=== PATIENT | female | born 1970 | race African-American/Black ===

== ENCOUNTER → 2016-10-22 | Outpatient (CLI) | payer BC ==
[~2016-10-22] MED LIST: IOPAMIDOL (ISOVUE-300) 100 ML BTL IV ONE
== END ==
LOC: FIMAGING 09:10
PROVIDERS: ATTEND Internal Medicine
DX: N32.9 Bladder disorder, unspecified (principal); J98.4 Other disorders of lung; K59.00 Constipation, unspecified
CPT/HCPCS: Q9967

== ENCOUNTER 2016-10-24 01:40 | Emergency (ER) | payer BC ==
[2016-10-24 01:50] VITALS: O2SAT 95
[2016-10-24] MEDS ORDERED: NS 1,000 ML IV ONE (02:22)
[2016-10-24] MEDS ORDERED: fentaNYL 100 MCG/2 ML INJ IVP ONE (02:22)
[2016-10-24 02:39] LABS: % IMMATURE GRANULYOCYTES 0.8 % (0.0-1.1); ABSOLUTE IMMATURE GRANULOCYTES 0.09 10^3/uL (0.00-0.10); ADD DIFF? NO; ADD MORPH? NO; ADD SCAN? NO; ATYPICAL LYMPHOCYTE FLAG 0 (0-99); FRAGMENT RBC FLAG 0 (0-99); HEMATOCRIT 42.8 % (38.0-47.0); HEMOGLOBIN 13.7 g/dL (12.6-16.3); LEFT SHIFT FLG 0 (0-99); LIPEMIA HEMOLYSIS FLAG 80 (0-99); MEAN CELL HEMOGLOBIN 28.5 pg (27.9-34.1); MEAN CELL VOLUME 89.2 fL (81.5-99.8); MEAN PLATELET VOLUME 10.4 fL (8.7-11.7); PLATELET CLUMPS FLAG 0 (0-99); PLATELET COUNT 164 10^3/uL (150-400); RED CELL DISTRIBUTION WIDTH 13.7 % (11.5-15.2)
[2016-10-24 02:56] LABS: ALANINE AMINOTRANSFERASE 26 IU/L (9-52); ALBUMIN 3.9 g/dL (3.5-5.0); ALKALINE PHOSPHATASE 58 IU/L (38-126); ANION GAP 13 mEq/L (8-16); ASPARTATE AMINOTRANSFERASE 22 IU/L (14-46); BILIRUBIN,TOTAL 0.9 mg/dL (0.1-1.4); BILIRUBIN-CONJUGATED 0.4 mg/dL (0.0-0.5); BILIRUBIN-UNCONJUGATED 0.5 mg/dL (0.0-1.1); CALCIUM 9.5 mg/dL (8.5-10.4); CARBON DIOXIDE 22 mEq/l (22-31); CHLORIDE 107 mEq/L (97-110); CREATININE 0.6 mg/dL (0.6-1.0); GLOMERULAR FILTRATION RATE > 60; GLUCOSE 115 mg/dL (70-100); POTASSIUM 4.7 mEq/L (3.5-5.2); SODIUM 142 mEq/L (134-144); TOTAL PROTEIN 7.4 g/dL (6.3-8.2)
[2016-10-24 03:23] LABS: COLOR YELLOW; LEUKOCYTE ESTERASE,URINE TRACE (NEGATIVE); NITRITE,URINE NEGATIVE (NEGATIVE)
[2016-10-24 03:40] LABS: BACTERIA 1+ /hpf (NONE SEEN); MUCUS 1+ /lpf (NONE-1+); RBC,URINE 50-182 /hpf (0-3); WBC,URINE 50-182 /hpf (0-3)
[2016-10-24] MEDS ORDERED: PHENAZOPYRIDINE HCL 200 MG TAB PO ONE (03:40)
--- NOTE | 2016-10-24 03:43 | EDPHY ---
H & P Stated Complaint: abd pain, flank pain Time Seen by Provider: 10/24/16 02:09 HPI/ROS: HPI The patient presents with lower abdominal pain which is suprapubic and awoke her from sleep tonight just prior to arrival. The pain is dull, radiates toward her back bilaterally and is associated with dysuria. She is passing small blood clots when she urinates. She has been diagnosed with a urinary tract infection and has been on 2 antibiotics. Two days ago she was switched to ciprofloxacin, she is not sure of the antibiotic she was on previously. She has been having similar lower abdominal pain. She had a CT scan done 2 days ago which showed thickening of her bladder wall. REVIEW OF SYSTEMS Constitutional: No fever, no chills. Eyes: No discharge. ENT: No sore throat. Cardiovascular: No chest pain, no palpitations. Respiratory: No cough, no shortness of breath. Gastrointestinal: + abdominal pain, no vomiting. Genitourinary: No hematuria. Musculoskeletal: + back pain. Skin: No rashes. Neurological: No headache. PMHx: Interstitial lung disease on CellCept Soc Hx: Lives at home PHYSICAL General Appearance: Alert, no distress Eyes: Pupils equal and round no pallor or injection ENT, Mouth: Mucous membranes moist Respiratory: There are no retractions, lungs are clear to auscultation Cardiovascular: Regular rate and rhythm Gastrointestinal: Abdomen is soft with suprapubic abdominal tenderness Neurological: A&O, moves all extremities Skin: Warm and dry, no rashes Musculoskeletal: Neck is supple non tender Extremities: symmetrical, full range of motion Psychiatric: Patient is oriented X 3, there is no agitation Source: Patient Exam Limitations: No limitations - Medical/Surgical History Hx Asthma: No Hx Chronic Respiratory Disease: No Hx Diabetes: No Hx Cardiac Disease: No Hx Renal Disease: No Hx Cirrhosis: No Hx Alcoholism: No Hx HIV/AIDS: No Hx Splenectomy or Spleen Trauma: No Other PMH: denies Constitutional: Initial Vital Signs Temperature (C) 36.3 C 10/24/16 01:48 Heart Rate 87 10/24/16 01:48 Respiratory Rate 20 10/24/16 01:48 Blood Pressure 90/69 L 10/24/16 01:48 O2 Sat (%) 95 10/24/16 01:48 O2 Delivery Mode Room Air O2 (L/minute) 2 Allergies/Adverse Reactions: No Known Allergies Allergy (Unverified 10/24/16 01:48) Home Medications: Medication Instructions Recorded Phenazopyridine HCl [Pyridium] 200 mg PO TID #20 tab 10/24/16 levOFLOXACIN [Levaquin] 500 mg PO DAILY #7 tablet 10/24/16 Medical Decision Making Differential Diagnosis: This is a 46-year-old female who presents with several days of suprapubic abdominal pain associated with dysuria and hematuria, diagnosed with a urinary tract infection, taking ciprofloxacin, who presents from home with abdominal pain and dysuria which awoke her from sleep. She continues to have hematuria. Hospital records reviewed, CT scan performed 2 days ago shows thickening of her bladder wall with constipation. Urine culture from October 18 shows more than 5 different bacterial colonies, urine culture from 10/22 is negative to date. Differential diagnosis includes hemorrhagic cystitis, pyelonephritis, constipation. In the emergency room, the patient was given IV fluids and pain medication. Her symptoms improved. Labs were checked and she has a mild leukocytosis. UA is similar to previous with small leuk esterase, white blood cells, red blood cells and bacteria. She was given a dose of ceftriaxone. There is some concern for pyelonephritis because she does have back pain with her symptoms. Her urine cultures are not helpful to guide treatment currently, however I will switch her to levofloxacin and have her stop taking ciprofloxacin as there is some concern for pyelonephritis and this may provide better coverage. I have offered her admission, however she would like to go home. She did get a dose of Pyridium here with some improvement in her symptoms will give her prescription for this as well. - Data Points Laboratory Results: Laboratory Results 10/24/16 02:28 10/24/16 02:28 10/24/16 10/24/16 10/24/16 03:07 02:28 02:28 WBC RBC Hgb Hct MCV MCH MCHC RDW Plt Count MPV Neut % (Auto) Lymph % (Auto) Tensas % (Auto) Eos % (Auto) Baso % (Auto) Nucleat RBC Rel Count Absolute Neuts (auto) Absolute Lymphs (auto) Absolute Monos (auto) Absolute Eos (auto) Absolute Basos (auto) Absolute Nucleated RBC Immature Gran % Immature Gran # Sodium 142 mEq/L mEq/L (134-144) Potassium 4.7 mEq/L mEq/L (3.5-5.2) Chloride 107 mEq/L mEq/L (97-110) Carbon Dioxide 22 mEq/l mEq/l (22-31) Anion Gap 13 mEq/L mEq/L (8-16) BUN 15 mg/dL mg/dL (7-23) Creatinine 0.6 mg/dL mg/dL (0.6-1.0) Estimated GFR > 60 Glucose 115 mg/dL H mg/dL (70-100) Calcium 9.5 mg/dL mg/dL (8.5-10.4) Total Bilirubin 0.9 mg/dL mg/dL (0.1-1.4) Conjugated Bilirubin 0.4 mg/dL mg/dL (0.0-0.5) Unconjugated Bilirubin 0.5 mg/dL mg/dL (0.0-1.1) AST 22 IU/L IU/L (14-46) ALT 26 IU/L IU/L (9-52) Alkaline Phosphatase 58 IU/L IU/L (38-126) Total Protein 7.4 g/dL g/dL (6.3-8.2) Albumin 3.9 g/dL g/dL (3.5-5.0) Lipase 279.0 IU/L IU/L (23-300) Beta HCG, Qual NEGATIVE Urine Color YELLOW Urine Appearance MODERATELY TURBID Urine pH 5.0 (5.0-7.5) Ur Specific Gilbert 1.015 (1.002-1.030) Urine Protein 2+ H (NEGATIVE) Urine Ketones NEGATIVE (NEGATIVE) Urine Blood 3+ H (NEGATIVE) Urine Nitrate NEGATIVE (NEGATIVE) Urine Bilirubin NEGATIVE (NEGATIVE) Urine Urobilinogen NEGATIVE EU EU (0.2-1.0) Ur Leukocyte Esterase TRACE H (NEGATIVE) Urine RBC 50-182 /hpf H /hpf (0-3) Urine WBC 50-182 /hpf H /hpf (0-3) Ur Epithelial Cells TRACE /lpf /lpf (NONE-1+) Urine Bacteria 1+ /hpf H /hpf (NONE SEEN) Urine Mucus 1+ /lpf /lpf (NONE-1+) Urine Glucose 1+ H (NEGATIVE) 10/24/16 02:28 WBC 10.80 10^3/uL H 10^3/uL (3.80-9.50) RBC 4.80 10^6/uL 10^6/uL (4.18-5.33) Hgb 13.7 g/dL g/dL (12.6-16.3) Hct 42.8 % % (38.0-47.0) MCV 89.2 fL fL (81.5-99.8) MCH 28.5 pg pg (27.9-34.1) MCHC 32.0 g/dL L g/dL (32.4-36.7) RDW 13.7 % % (11.5-15.2) Plt Count 164 10^3/uL D 10^3/uL (150-400) MPV 10.4 fL fL (8.7-11.7) Neut % (Auto) 70.5 % % (39.3-74.2) Lymph % (Auto) 19.1 % % (15.0-45.0) Tensas % (Auto) 5.4 % % (4.5-13.0) Eos % (Auto) 4.0 % % (0.6-7.6) Baso % (Auto) 0.2 % L % (0.3-1.7) Nucleat RBC Rel Count 0.0 % % (0.0-0.2) Absolute Neuts (auto) 7.62 10^3/uL H 10^3/uL (1.70-6.50) Absolute Lymphs (auto) 2.06 10^3/uL 10^3/uL (1.00-3.00) Absolute Monos (auto) 0.58 10^3/uL 10^3/uL (0.30-0.80) Absolute Eos (auto) 0.43 10^3/uL H 10^3/uL (0.03-0.40) Absolute Basos (auto) 0.02 10^3/uL 10^3/uL (0.02-0.10) Absolute Nucleated RBC 0.00 10^3/uL 10^3/uL (0-0.01) Immature Gran % 0.8 % % (0.0-1.1) Immature Gran # 0.09 10^3/uL 10^3/uL (0.00-0.10) Sodium Potassium Chloride Carbon Dioxide Anion Gap BUN Creatinine Estimated GFR Glucose Calcium Total Bilirubin Conjugated Bilirubin Unconjugated Bilirubin AST ALT Alkaline Phosphatase Total Protein Albumin Lipase Beta HCG, Qual Urine Color Urine Appearance Urine pH Ur Specific Gilbert Urine Protein Urine Ketones Urine Blood Urine Nitrate Urine Bilirubin Urine Urobilinogen Ur Leukocyte Esterase Urine RBC Urine WBC Ur Epithelial Cells Urine Bacteria Urine Mucus Urine Glucose Medications Given: Discontinued Medications Fentanyl (Sublimaze) 100 mcg IVP EDNOW ONE Stop: 10/24/16 02:23 Last Admin: 10/24/16 02:45 Dose: 100 mcg Sodium Chloride (Ns) 1,000 mls @ 0 mls/hr IV ONCE ONE PRN Reason: Wide Open Stop: 10/24/16 02:23 Last Admin: 10/24/16 02:45 Dose: 1,000 mls Ceftriaxone Sodium/Dextrose (Rocephin 1 Gm (Premix)) 50 mls @ 100 mls/hr IV EDNOW ONE PRN Reason: Protocol Stop: 10/24/16 04:02 Last Admin: 10/24/16 03:50 Dose: 50 mls Phenazopyridine HCl (Pyridium) 200 mg PO EDNOW ONE Stop: 10/24/16 03:41 Last Admin: 10/24/16 03:50 Dose: 200 mg Departure - Departure Disposition: Home, Routine, Self-Care Clinical Impression: Hemorrhagic cystitis Condition: Good Instructions: Urinary Tract Infection in Women (ED) Additional Instructions: Please return to the emergency room if your worse in any way. You should stop taking the ciprofloxacin and start taking the antibiotic I have prescribed. Referrals: Marlee Talavera MD [Primary Care Provider] - As per Instructions Prescriptions: levOFLOXACIN [Levaquin] 500 mg PO DAILY #7 tablet Phenazopyridine HCl [Pyridium] 200 mg PO TID #20 tab
[2016-10-24 06:07] VITALS: BP 97/64; PULSE 73; RESP 16; TEMP 98.4
== END 2016-10-24 06:07 | disposition home or self-care (01) ==
DX: N30.90 Cystitis, unspecified without hematuria (principal)
CPT/HCPCS: 96365; J0696; J3010

== ENCOUNTER 2016-10-28 14:59 | Emergency (ER) | payer BC ==
--- NOTE | 2016-10-28 15:06 | EDPHY ---
H & P Stated Complaint: Lower back pain, hematuria, LLQ abd pain recent uti HPI/ROS: CHIEF COMPLAINT: Abdominal pain HISTORY OF PRESENT ILLNESS: The patient is a 46 year old female on CellCept for interstitial lung disease who presents to the emergency department with worsening abdominal pain. The patient started having intermittent lower abdominal pain 5 days ago. She was diagnosed with a urinary tract infection by her primary care physician and started on 2 different antibiotics. She was seen here on 10/24 for continued lower abdominal pain with associated hematuria. At that time, UA showed ongoing infection. She discontinued Ciprofloxacin and was started on Levofloxacin which she is still taking. The patient had a CT performed 10/22 that revealed thickened bladder wall with constipation. She used an enema but has only been able to have small bowel movements. Her abdominal pain has progressively worsened. This morning the pain came on gradually and has remained constant. It is severe in nature. She has been taking 600mg Ibuprofen with minimal relief. She continues to have hematuria. She developed chills and had 1 episode of emesis today. She has been eating throughout the day without further vomiting. REVIEW OF SYSTEMS: A ten point review of systems was performed and is negative with the exception of the items mentioned in the HPI. Source: Patient, Family Exam Limitations: No limitations - Personal History LMP (Females 10-55): Unknown Current Tetanus/Diphtheria Vaccine: Unsure Current Tetanus Diphtheria and Acellular Pertussis (TDAP): Unsure - Medical/Surgical History Hx Asthma: No Hx Chronic Respiratory Disease: Yes Hx Diabetes: No Hx Cardiac Disease: No Hx Renal Disease: No Hx Cirrhosis: No Hx Alcoholism: No Hx HIV/AIDS: No Hx Splenectomy or Spleen Trauma: No Other PMH: being treated by dr robles ([place]) for interstitial lung disease - Social History Smoking Status: Never smoked Additional Social History: at bedside. Employed at [employer]. - Physical Exam Exam: General Appearance: Alert, appears uncomfortable. Vital signs reviewed. HR 104 at triage. Eyes: Pupils equal and round, no conjunctival injection, no discharge. Anicteric. ENT, Mouth: Dry oral mucosa, no oropharyngeal erythema or edema. Neck: No lymphadenopathy, supple. Respiratory: Lungs are clear to auscultation; slight crackles bilaterally. Cardiovascular: Regular rate and rhythm, not tachycardic at time of my exam; no murmur, rub, or gallop. Gastrointestinal: Soft, moderate diffuse tenderness, worse left lower quadrant. No guarding. Bowel sounds present. Rectal: performed earlier today by PCP, no palpable stool in rectal vault Skin: Warm and dry, no rashes on exposed skin, normal color. Back: Nontender to palpation over the thoracolumbar spine. No CVAT. Extremities: No lower extremity edema, no calf tenderness or swelling. Neurological: Alert and oriented. Moving all four extremities easily and equally. Psychiatric: Normal affect. Constitutional: Initial Vital Signs Temperature (C) 36.5 C 10/28/16 15:01 Heart Rate 104 H 10/28/16 15:01 Respiratory Rate 20 10/28/16 15:01 Blood Pressure 116/74 10/28/16 15:01 O2 Sat (%) 95 10/28/16 15:01 O2 Delivery Mode Room Air O2 (L/minute) 2 Allergies/Adverse Reactions: No Known Allergies Allergy (Verified 10/29/16 11:38) Home Medications: Medication Instructions Recorded Phenazopyridine HCl [Pyridium] 200 mg PO TID #20 tab 10/24/16 levOFLOXACIN [Levaquin] 500 mg PO DAILY #7 tablet 10/24/16 Ibuprofen [Motrin (*)] 600 mg PO TID 10/29/16 Mycophenolate Mofetil [Cellcept] 1,500 mg PO BID 10/29/16 Solifenacin Succinate [Vesicare] 10 mg PO DAILY 10/29/16 Medical Decision Making - Diagnostics Imaging: Study: X-ray of the abdomen was obtained. Results: Massive right-sided constipation worse since 6 days prior. 2. No discernible pneumoperitoneum. Images were interpreted by the radiologist, Dr. Acosta. I viewed the images myself on the PACS system. ED Course/Re-evaluation: Lab work and repeat UA ordered. Abdominal x-ray pending. IV was established, the patient received fluids, 0.5mg Dilaudid, 4mg Zofran. Xray shows significant constipation, no obstruction. She is not vomiting and has been eating in the emergency department. 6:45 p.m.: I reevaluated the patient after she received a suppository as well as Magnesium citrate PO. She has still not had a bowel movement. She received a second suppository in the ED. 7:25 p.m.: The patient is comfortable with trying to have a bowel movement at home. We discussed continued treatment of constipation. I discussed UA results with the patient. Urine with continued signs of infection--WBC, RBC, nitrate, and LE with trace of bacteria. Culture sent. She is going to complete the course of levaquin. She will followup with a urologist. I do not suspect pyelonephritis today. I think that her lower abdominal pain is due to severe constipation. I do not find evidence of SBO. I do not think that she has diverticulitis (nl WBC count, no fever, no diarrhea or blood in stool). Differential Diagnosis: Abdominal pain including but not limited to bowel obstruction, diverticulitis, appendicitis, gastritis, pyelonephritis, and urinary tract infection. - Data Points Laboratory Results: Laboratory Results 10/28/16 15:34 10/28/16 15:34 Microbiology Results: MICROBIOLOGY 10/28/16 17:25 Urine,Clean Catch Urine Culture - Preliminary Medications Given: Discontinued Medications Bisacodyl (Dulcolax Rectal) 10 mg VT EDNOW ONE Stop: 10/28/16 18:28 Last Admin: 10/28/16 18:37 Dose: 10 mg Hydromorphone HCl (Dilaudid) 0.5 mg IVP EDNOW ONE Stop: 10/28/16 15:31 Last Admin: 10/28/16 15:48 Dose: 0.5 mg Sodium Chloride (Ns) 1,000 mls @ 0 mls/hr IV ONCE ONE PRN Reason: Wide Open Stop: 10/28/16 15:31 Last Admin: 10/28/16 15:48 Dose: 1,000 mls Magnesium Citrate (Magnesium Citrate) 100 ml PO ONCE ONE Stop: 10/28/16 16:28 Last Admin: 10/28/16 16:52 Dose: 300 ml Ondansetron HCl (Zofran) 4 mg IVP EDNOW ONE Stop: 10/28/16 15:31 Last Admin: 10/28/16 15:48 Dose: 4 mg Departure - Departure Disposition: Home, Routine, Self-Care Clinical Impression: Constipation Qualifiers: Constipation type: unspecified constipation type Qualified Code(s): K59.00 - Constipation, unspecified Urinary tract infection Qualifiers: Urinary tract infection type: acute cystitis Hematuria presence: with hematuria Qualified Code(s): N30.01 - Acute cystitis with hematuria Condition: Good Instructions: Constipation (ED), Urinary Tract Infection in Women (ED) Additional Instructions: Eat bland food that are easy to digest. Avoid dairy for the next 48 hours. Drink plenty of fluids. Try using Magnesium citrate and Glycerine suppository you can buy this at any pharmacy. If you continue to have trouble with your bowels followup with your primary care physician or return to the Emergency Department. If symptoms reoccur, followup with the multiple effect evaporator operator that you have been referred to. Call the referred Urologist to discuss ongoing urinary tract infection. Referrals: Marlee Talavera MD [Primary Care Provider] - As per Instructions Betty Vizcaino MD [Medical Doctor] - As per Instructions Ray España MD [Medical Doctor] - As per Instructions (Urologist) Report Scribed for: Anaya Gaming Report Scribed by: Elicia Booker Date of Report: 10/28/16 Time of Report: 15:24 Physician Review and Approval Statement: 10/28/16 15:06 Portions of this note were transcribed by the medical supply technician. I, Dr. Anaya Gaming, personally performed the history, physical exam, and medical decision- making; and confirmed the accuracy of the information in the transcribed note.
[2016-10-28] MEDS ORDERED: NS 1,000 ML IV ONE (15:30)
[2016-10-28] MEDS ORDERED: ONDANSETRON 4 MG/2 ML VIAL IVP ONE (15:30)
[2016-10-28] MEDS ORDERED: HYDROmorphONE/DILAUDID 1 MG/ML SYR IVP ONE (15:30)
[2016-10-28 15:43] LABS: % IMMATURE GRANULYOCYTES 0.5 % (0.0-1.1); ABSOLUTE IMMATURE GRANULOCYTES 0.04 10^3/uL (0.00-0.10); ADD DIFF? NO; ADD MORPH? NO; ADD SCAN? NO; ATYPICAL LYMPHOCYTE FLAG 0 (0-99); FRAGMENT RBC FLAG 0 (0-99); HEMATOCRIT 45.6 % (38.0-47.0); LEFT SHIFT FLG 0 (0-99); LIPEMIA HEMOLYSIS FLAG 80 (0-99); MEAN CELL HEMOGLOBIN 27.7 pg (27.9-34.1); MEAN CELL HEMOGLOBIN CONCENTR. 32.9 g/dL (32.4-36.7); MEAN CELL VOLUME 84.1 fL (81.5-99.8); PLATELET CLUMPS FLAG 10 (0-99); PLATELET COUNT 208 10^3/uL (150-400); RED BLOOD CELL COUNT 5.42 10^6/uL (4.18-5.33); RED CELL DISTRIBUTION WIDTH 13.8 % (11.5-15.2)
[2016-10-28 16:13] LABS: ANION GAP 14 mEq/L (8-16); CALCIUM 10.3 mg/dL (8.5-10.4); CARBON DIOXIDE 23 mEq/l (22-31); CHLORIDE 105 mEq/L (97-110); CREATININE 0.8 mg/dL (0.6-1.0); GLOMERULAR FILTRATION RATE > 60; GLUCOSE 82 mg/dL (70-100); POTASSIUM 4.3 mEq/L (3.5-5.2); SODIUM 142 mEq/L (134-144)
[2016-10-28] MEDS ORDERED: MAGNESIUM CITRATE 300 ML BOTTLE PO ONE (16:27)
[2016-10-28 17:19] LABS: COLOR AMBER; LEUKOCYTE ESTERASE,URINE 1+ (NEGATIVE); NITRITE,URINE POSITIVE (NEGATIVE)
[2016-10-28 17:24] LABS: BACTERIA TRACE /hpf (NONE SEEN); MUCUS TRACE /lpf (NONE-1+); RBC,URINE 50-182 /hpf (0-3); WBC,URINE 50-182 /hpf (0-3)
[2016-10-28] MEDS ORDERED: BISACODYL 10 MG SUPP PR ONE ×2 (18:27→18:28)
[2016-10-28 18:51] VITALS: RESP 18
[2016-10-28 19:47] VITALS: BP 111/74; PULSE 96; TEMP 98.1; O2SAT 92
== END 2016-10-28 19:47 | disposition home or self-care (01) ==
DX: K59.00 Constipation, unspecified (principal); N30.01 Acute cystitis with hematuria; B96.89 Other specified bacterial agents as the cause of diseases classified elsewhere
CPT/HCPCS: 96374; J1170; J2405

== ENCOUNTER 2016-10-29 08:22 | Observation (INO) | payer BC ==
[2016-10-29] MEDS ORDERED: NS 1,000 ML IV ONE (08:45)
[2016-10-29] MEDS ORDERED: fentaNYL 100 MCG/2 ML INJ IVP ONE (08:48)
[2016-10-29] MEDS ORDERED: fentaNYL 100 MCG/2 ML INJ ONE (08:49)
--- NOTE | 2016-10-29 09:15 | EDPHY ---
H & P Stated Complaint: LOW BACK PAIN VOMITING CONSTIPATION SEEN YESTERDAY FOR SAME HPI/ROS: CHIEF COMPLAINT: abdominal pain, constipation vomiting HISTORY OF PRESENT ILLNESS: patient has greater than 2 week history of abdominal pain. At 1st this was generalized and associated with constipation and urinary symptoms. This is her 3rd visit for the same complaints. Initially she had a CT scan by her outpatient primary care physician as noted in the chart. She then repeat was seen in the emergency department on diagnosed with UTI. She initially was on ciprofloxacin, on the she was changed to Levaquin. She was here yesterday with worsening abdominal pain and diagnosed with constipation. She was treated for this and discharged home with instructions to continue laxatives at home. She says that she was unable to do so as her pain significantly worsened last night. The pain is primarily over the left flank now. It is rated as severe. 10/10 without any alleviating factors. No position of comfort. Associated with multiple episodes of vomiting , including 1 upon arrival to the emergency department. Subjective fever. No other associated complaints or modifying factors PREVIOUS ABDOMINAL SURGERIES/DIAGNOSES: UTI, constipation, interstitial cystitis REVIEW OF SYSTEMS: Ten systems reviewed and are negative unless otherwise noted in the HPI EXAMINATION: General Appearance: Alert, no distress. In obvious discomfort Head: normocephalic, atraumatic Eyes: Pupils equal and round, no conjunctival pallor or injection ENT, Mouth: Mucous membranes dry. Uvula midline. No erythema or edema Neck: Normal inspection, supple, non-tender Respiratory: Lungs are clear to auscultation. No wheezing, rhonchi or crackles. Cardiovascular: Regular rate and rhythm . No murmur. Pulses intact distally. Gastrointestinal: Abdomen is Soft but tender in all quadrants. Severe tenderness over the left CVA. Mild tenderness over the right CVA. No tympany. Diminished bowel sounds in all quadrants Neurological: A&O, nonfocal, strength is symmetric in all limbs Skin: Warm and dry, no rash Extremities: Nontender, no pedal edema Psychiatric: Mood and affect normal DIFFERENTIAL DIAGNOSES: Including but not limited to Pyelonephritis, constipation, obstipation, UTI MDM: 9:15 a.m. ongoing abdominal pain that has acutely worsened yesterday. It is now severe in the left flank and moderate in the right flank, and generalized abdominal pain that is moderate to severe. No bowel movement since discharged home yesterday. She has been vomiting repeatedly and her pain is significantly worse. She does appear ill on my examination, but she is hemodynamically stable. I have ordered ultrasound of the kidneys to examine for pyelonephritis versus stone. Clinical suspicion is high for pyelonephritis with severe constipation. Patient will likely need admission as this is her 3rd visit for this. 9:35 a.m. notified by RN that the patient is complaining of worsening pain during her ultrasound. Dilaudid 0.5 ordered 11:00 a.m. intractable abdominal pain in a patient with 3 emergency department visits for constipation and urinary complaints. UA has improved since previous. Chemistry reveals some mild elevation of the bilirubin, but her pain is not in the right upper quadrant. Ultrasound of the kidneys reveals no abnormality. Specifically no hydronephrosis, stranding or stone. CBC has improved. However the patient feels worse, and on examination she does not appear to be well. I discussed the case with the hospitalists and they will admit the patient for further care. The patient and her spouse are comfortable with this plan. ED Precautions: Worsening pain. Fever. Bloody stools. Bloody emesis. Constipation or diarrhea. SUPERVISION: Patient was evaluated in conjunction with the supervising physician. Please see their note for details. Source: Patient, Family, Old records Exam Limitations: No limitations - Personal History Current Tetanus/Diphtheria Vaccine: Yes Current Tetanus Diphtheria and Acellular Pertussis (TDAP): Yes - Medical/Surgical History Hx Asthma: No Hx Chronic Respiratory Disease: Yes Hx Diabetes: No Hx Cardiac Disease: No Hx Renal Disease: No Hx Cirrhosis: No Hx Alcoholism: No Hx HIV/AIDS: No Hx Splenectomy or Spleen Trauma: No Other PMH: being treated by dr robles ([place]) for interstitial lung disease - Social History Smoking Status: Never smoked Constitutional: Initial Vital Signs Temperature (C) 98.2 F 10/29/16 08:24 Heart Rate 105 H 10/29/16 08:24 Respiratory Rate 20 10/29/16 08:24 Blood Pressure 110/97 H 10/29/16 08:24 O2 Sat (%) 96 10/29/16 08:24 O2 Delivery Mode Room Air Allergies/Adverse Reactions: No Known Allergies Allergy (Unverified 10/29/16 08:26) Home Medications: Medication Instructions Recorded Phenazopyridine HCl [Pyridium] 200 mg PO TID #20 tab 10/24/16 levOFLOXACIN [Levaquin] 500 mg PO DAILY #7 tablet 10/24/16 Mycophenolate Mofetil 10/29/16 Vesicare 10/29/16 Medical Decision Making - Data Points Laboratory Results: Laboratory Results 10/29/16 08:45 10/29/16 08:45 10/29/16 10/29/16 10/29/16 09:55 08:45 08:45 WBC RBC Hgb Hct MCV MCH MCHC RDW Plt Count MPV Neut % (Auto) Lymph % (Auto) [place] % (Auto) Eos % (Auto) Baso % (Auto) Nucleat RBC Rel Count Absolute Neuts (auto) Absolute Lymphs (auto) Absolute Monos (auto) Absolute Eos (auto) Absolute Basos (auto) Absolute Nucleated RBC Immature Gran % Immature Gran # Sodium 139 mEq/L mEq/L (134-144) Potassium 4.3 mEq/L mEq/L (3.5-5.2) Chloride 103 mEq/L mEq/L (97-110) Carbon Dioxide 22 mEq/l mEq/l (22-31) Anion Gap 14 mEq/L mEq/L (8-16) BUN 11 mg/dL mg/dL (7-23) Creatinine 0.8 mg/dL mg/dL (0.6-1.0) Estimated GFR > 60 Glucose 89 mg/dL mg/dL (70-100) Calcium 9.3 mg/dL mg/dL (8.5-10.4) Total Bilirubin 2.4 mg/dL H mg/dL (0.1-1.4) Conjugated Bilirubin 0.5 mg/dL mg/dL (0.0-0.5) Unconjugated Bilirubin 1.9 mg/dL H mg/dL (0.0-1.1) AST 38 IU/L IU/L (14-46) ALT 29 IU/L IU/L (9-52) Alkaline Phosphatase 81 IU/L IU/L (38-126) Total Protein 7.9 g/dL g/dL (6.3-8.2) Albumin 4.2 g/dL g/dL (3.5-5.0) Lipase 114.0 IU/L IU/L (23-300) Beta HCG, Qual NEGATIVE Urine Color ROMAIN Urine Appearance MODERATELY TURBID Urine pH 5.0 (5.0-7.5) Ur Specific [place] 1.011 (1.002-1.030) Urine Protein 2+ H (NEGATIVE) Urine Ketones 1+ H (NEGATIVE) Urine Blood 3+ H (NEGATIVE) Urine Nitrate POSITIVE H (NEGATIVE) Urine Bilirubin NEGATIVE (NEGATIVE) Urine Urobilinogen 2.0 EU H EU (0.2-1.0) Ur Leukocyte Esterase 1+ H (NEGATIVE) Urine RBC 50-182 /hpf H /hpf (0-3) Urine WBC 50-182 /hpf H /hpf (0-3) Ur Epithelial Cells NONE SEEN /lpf /lpf (NONE-1+) Urine Bacteria 2+ /hpf H /hpf (NONE SEEN) Urine Mucus 3+ /lpf H /lpf (NONE-1+) Ur Culture Indicated? INDICATED H (NI) Urine Glucose NEGATIVE (NEGATIVE) 10/29/16 08:45 WBC 8.02 10^3/uL 10^3/uL (3.80-9.50) RBC 5.00 10^6/uL 10^6/uL (4.18-5.33) Hgb 14.2 g/dL g/dL (12.6-16.3) Hct 43.5 % % (38.0-47.0) MCV 87.0 fL fL (81.5-99.8) MCH 28.4 pg pg (27.9-34.1) MCHC 32.6 g/dL g/dL (32.4-36.7) RDW 13.7 % % (11.5-15.2) Plt Count 196 10^3/uL 10^3/uL (150-400) MPV 10.2 fL fL (8.7-11.7) Neut % (Auto) 74.6 % H % (39.3-74.2) Lymph % (Auto) 13.7 % L % (15.0-45.0) [place] % (Auto) 7.1 % % (4.5-13.0) Eos % (Auto) 3.9 % % (0.6-7.6) Baso % (Auto) 0.1 % L % (0.3-1.7) Nucleat RBC Rel Count 0.0 % % (0.0-0.2) Absolute Neuts (auto) 5.98 10^3/uL 10^3/uL (1.70-6.50) Absolute Lymphs (auto) 1.10 10^3/uL 10^3/uL (1.00-3.00) Absolute Monos (auto) 0.57 10^3/uL 10^3/uL (0.30-0.80) Absolute Eos (auto) 0.31 10^3/uL 10^3/uL (0.03-0.40) Absolute Basos (auto) 0.01 10^3/uL L 10^3/uL (0.02-0.10) Absolute Nucleated RBC 0.00 10^3/uL 10^3/uL (0-0.01) Immature Gran % 0.6 % % (0.0-1.1) Immature Gran # 0.05 10^3/uL 10^3/uL (0.00-0.10) Sodium Potassium Chloride Carbon Dioxide Anion Gap BUN Creatinine Estimated GFR Glucose Calcium Total Bilirubin Conjugated Bilirubin Unconjugated Bilirubin AST ALT Alkaline Phosphatase Total Protein Albumin Lipase Beta HCG, Qual Urine Color Urine Appearance Urine pH Ur Specific [place] Urine Protein Urine Ketones Urine Blood Urine Nitrate Urine Bilirubin Urine Urobilinogen Ur Leukocyte Esterase Urine RBC Urine WBC Ur Epithelial Cells Urine Bacteria Urine Mucus Ur Culture Indicated? Urine Glucose Medications Given: Discontinued Medications Fentanyl (Sublimaze) 50 mcg IVP EDNOW ONE Stop: 10/29/16 08:49 Last Admin: 10/29/16 08:55 Dose: 50 mcg Hydromorphone HCl (Dilaudid) 0.5 mg IVP Q2HRS PRN PRN Reason: Pain, Severe Unable to Take PO Stop: 10/29/16 10:01 Last Admin: 10/29/16 09:46 Dose: 0.5 mg Sodium Chloride (Ns) 1,000 mls @ 0 mls/hr IV ONCE ONE PRN Reason: Wide Open Stop: 10/29/16 08:46 Last Admin: 10/29/16 08:55 Dose: 1,000 mls Departure - Departure Disposition: [facility] Inpatient Acute Clinical Impression: Intractable abdominal pain, Acute flank pain UTI (urinary tract infection) Qualifiers: Urinary tract infection type: site unspecified Hematuria presence: with hematuria Qualified Code(s): N39.0 - Urinary tract infection, site not specified Condition: Good Referrals: Marlee Talavera MD [Primary Care Provider] - As per Instructions
[2016-10-29 09:18] LABS: % IMMATURE GRANULYOCYTES 0.6 % (0.0-1.1); ABSOLUTE IMMATURE GRANULOCYTES 0.05 10^3/uL (0.00-0.10); ADD DIFF? NO; ADD MORPH? NO; ADD SCAN? NO; ATYPICAL LYMPHOCYTE FLAG 0 (0-99); FRAGMENT RBC FLAG 0 (0-99); HEMATOCRIT 43.5 % (38.0-47.0); HEMOGLOBIN 14.2 g/dL (12.6-16.3); LEFT SHIFT FLG 0 (0-99); LIPEMIA HEMOLYSIS FLAG 80 (0-99); MEAN CELL HEMOGLOBIN 28.4 pg (27.9-34.1); MEAN CELL HEMOGLOBIN CONCENTR. 32.6 g/dL (32.4-36.7); MEAN PLATELET VOLUME 10.2 fL (8.7-11.7); PLATELET CLUMPS FLAG 10 (0-99); PLATELET COUNT 196 10^3/uL (150-400); RED CELL DISTRIBUTION WIDTH 13.7 % (11.5-15.2)
[2016-10-29 09:27] LABS: ALANINE AMINOTRANSFERASE 29 IU/L (9-52); ALBUMIN 4.2 g/dL (3.5-5.0); ALKALINE PHOSPHATASE 81 IU/L (38-126); ANION GAP 14 mEq/L (8-16); ASPARTATE AMINOTRANSFERASE 38 IU/L (14-46); BILIRUBIN,TOTAL 2.4 mg/dL (0.1-1.4); BILIRUBIN-CONJUGATED 0.5 mg/dL (0.0-0.5); BILIRUBIN-UNCONJUGATED 1.9 mg/dL (0.0-1.1); CALCIUM 9.3 mg/dL (8.5-10.4); CARBON DIOXIDE 22 mEq/l (22-31); CHLORIDE 103 mEq/L (97-110); CREATININE 0.8 mg/dL (0.6-1.0); GLOMERULAR FILTRATION RATE > 60; GLUCOSE 89 mg/dL (70-100); POTASSIUM 4.3 mEq/L (3.5-5.2); SODIUM 139 mEq/L (134-144); TOTAL PROTEIN 7.9 g/dL (6.3-8.2)
[2016-10-29] MEDS: HYDROmorphONE/DILAUDID 1 MG/ML SYR IVP PRN ×2 (09:46→12:04)
[2016-10-29 10:29] LABS: COLOR AMBER; LEUKOCYTE ESTERASE,URINE 1+ (NEGATIVE); NITRITE,URINE POSITIVE (NEGATIVE)
[2016-10-29 10:31] LABS: BACTERIA 2+ /hpf (NONE SEEN); MUCUS 3+ /lpf (NONE-1+); RBC,URINE 50-182 /hpf (0-3); WBC,URINE 50-182 /hpf (0-3)
[2016-10-29] MEDS ORDERED: HYDROmorphONE/DILAUDID 1 MG/ML SYR ONE (11:54)
[2016-10-29] MEDS ORDERED: ONDANSETRON 4 MG/2 ML VIAL IVP PRN (13:45)
[2016-10-29] MEDS ORDERED: HYDROCODONE/APAP 5/325 TAB PO PRN (13:45)
[2016-10-29] MEDS ORDERED: ONDANSETRON DISINTEGRATING 4 MG TAB PO PRN (13:45)
--- NOTE | 2016-10-29 13:52 | PDGENHP ---
History and Physical - Chief Complaint abd pain - History of Present Illness 46 yo Female p/w worsening abd pain. She has had multiple visits to the E.D. in the last 2 weeks. Yesterday she presented to the E.D. with abd pain and a KUB showed Right sided constipation. She was given a bowel regimen and had a very small minimal stool this morning. She continue to have right sided abdominal pain and presented to the E.D. Abd US today showed no hydronephrosis, no perinephric fluid, no stone. She denies flank pain. she was admitted for further mgmt. She reports that abd pain started about 2 weeks ago and has been getting worse. She does not remember when her last BM was. Most of the pain is localized to the right quadrant. She has remained afebrile. She reports not recent flatus, but did have flatus and small BM this morning. She also c/o Dysuria. She was evaluated in the E.D multiple times as well. Was treated for a UTI about 1.5 weeks. Abx were recently changed to Levaquin which she has been taking for several days with no relief of her sx's. UA today is c/ w +WBC, +Nitrate, +LE. PMHx: -Interstitial lung disease, UTI, constipation PSurgical Hx: the pt denies SocHx: no tobacco, ETOH, or Illicits FmHx: Diabetes Meds/All: NKDA. Meds reviewed. Include Levaquin, Ibuprofen, Cellcept, Pyridium, Vesicare Labs: CBC unremarkable BMP unremarkable Imaging: Abd US: per above KUB 10/28: constipation, personally reviewed 10/22: Abd/Pelvis CT: Moderate diffuse bladder thickening 10/25: UCx: no growth I/P #CONSTIPATION #ABD PAIN DUE TO CONSTIPATION, mostly with localization to the RLQ #QUERY INTERSTITIAL CYSTITIS #POSSIBLE UTI #ILD PLANS: The pt has not had a significant BM in quite some time. She will be initially treated with an Enema. If she does not respond, will obtain imaging to include a CT abd/pelvis. She will be started on Miralax and stool softners after the Enema is successful. She will be kept NPO for now. She does have RLQ pain, but does not have leukocytosis or fever. She does have a recent XR which shows constipation. I doubt that there is another etiology including acute appendicitis. For now treat per above. As for her dysuria, she was given the information for Dr. Asher with Urology during her last visit with the [facility]. It is not clear what the etiology is. Given persistent dysuria and UA per above, I will empirically change her abx to Rocephin and await cultures. We will hold off on Urology consult and opt for outpatient f/u if the constipation resolved and her pain is well controlled. Await cultures. Restart home meds DVT proph: Low risk Code: Full code History Information - Allergies/Home Medication List Allergies/Adverse Reactions: No Known Allergies Allergy (Verified 10/29/16 11:38) Home Medications: Ibuprofen [Motrin (*)] 600 mg PO TID 10/29/16 [Last Taken 10/28/16] Mycophenolate Mofetil [Cellcept] 1,500 mg PO BID 10/29/16 [Last Taken 10/29/16 1500MG] Solifenacin Succinate [Vesicare] 10 mg PO DAILY 10/29/16 [Last Taken 10/28/16] I have personally reviewed and updated: family history, medical history, social history, surgical history - Social History Smoking Status: Never smoked Review of Systems ROS: 10pt was reviewed & negative except for what was stated in HPI & below Physical Exam Temp Pulse Resp BP Pulse Ox 36.6 C 86 18 107/72 100 10/29/16 12:53 10/29/16 12:34 10/29/16 12:53 10/29/16 12:53 10/29/16 12:53 Constitutional: no apparent distress, appears nourished, not in pain Eyes: PERRL, anicteric sclera, EOMI Ears, Nose, Mouth, Throat: moist mucous membranes, hearing normal, ears appear normal, no oral mucosal ulcers Cardiovascular: regular rate and rhythym, no murmur, rub, or gallop, No edema Respiratory: no respiratory distress, no rales or rhonchi, clear to auscultation Gastrointestinal: tenderness, distension Genitourinary: no renal bruits Skin: warm, normal color, no rashes or abrasions, no fluctuance, no induration, No mottled Neurologic: AAOx3, sensation intact bilaterally Psychiatric: interacting appropriately, not anxious, not encephalopathic, thought process linear Lymph, Heme, Immunologic: no cervical LAD, no supraclavicular LAD Lab Data & Imaging Review 10/29/16 08:45 10/29/16 08:45 WBC 8.02 10^3/uL (3.80-9.50) 10/29/16 08:45 RBC 5.00 10^6/uL (4.18-5.33) 10/29/16 08:45 Hgb 14.2 g/dL (12.6-16.3) 10/29/16 08:45 Hct 43.5 % (38.0-47.0) 10/29/16 08:45 MCV 87.0 fL (81.5-99.8) 10/29/16 08:45 MCH 28.4 pg (27.9-34.1) 10/29/16 08:45 MCHC 32.6 g/dL (32.4-36.7) 10/29/16 08:45 RDW 13.7 % (11.5-15.2) 10/29/16 08:45 Plt Count 196 10^3/uL (150-400) 10/29/16 08:45 MPV 10.2 fL (8.7-11.7) 10/29/16 08:45 Neut % (Auto) 74.6 % (39.3-74.2) H 10/29/16 08:45 Lymph % (Auto) 13.7 % (15.0-45.0) L 10/29/16 08:45 [place] % (Auto) 7.1 % (4.5-13.0) 10/29/16 08:45 Eos % (Auto) 3.9 % (0.6-7.6) 10/29/16 08:45 Baso % (Auto) 0.1 % (0.3-1.7) L 10/29/16 08:45 Nucleat RBC Rel Count 0.0 % (0.0-0.2) 10/29/16 08:45 Absolute Neuts (auto) 5.98 10^3/uL (1.70-6.50) 10/29/16 08:45 Absolute Lymphs (auto) 1.10 10^3/uL (1.00-3.00) 10/29/16 08:45 Absolute Monos (auto) 0.57 10^3/uL (0.30-0.80) 10/29/16 08:45 Absolute Eos (auto) 0.31 10^3/uL (0.03-0.40) 10/29/16 08:45 Absolute Basos (auto) 0.01 10^3/uL (0.02-0.10) L 10/29/16 08:45 Absolute Nucleated RBC 0.00 10^3/uL (0-0.01) 10/29/16 08:45 Immature Gran % 0.6 % (0.0-1.1) 10/29/16 08:45 Immature Gran # 0.05 10^3/uL (0.00-0.10) 10/29/16 08:45 Sodium 139 mEq/L (134-144) 10/29/16 08:45 Potassium 4.3 mEq/L (3.5-5.2) 10/29/16 08:45 Chloride 103 mEq/L (97-110) 10/29/16 08:45 Carbon Dioxide 22 mEq/l (22-31) 10/29/16 08:45 Anion Gap 14 mEq/L (8-16) 10/29/16 08:45 BUN 11 mg/dL (7-23) 10/29/16 08:45 Creatinine 0.8 mg/dL (0.6-1.0) 10/29/16 08:45 Estimated GFR > 60 10/29/16 08:45 Glucose 89 mg/dL (70-100) 10/29/16 08:45 Calcium 9.3 mg/dL (8.5-10.4) 10/29/16 08:45 Total Bilirubin 2.4 mg/dL (0.1-1.4) H 10/29/16 08:45 Conjugated Bilirubin 0.5 mg/dL (0.0-0.5) 10/29/16 08:45 Unconjugated Bilirubin 1.9 mg/dL (0.0-1.1) H 10/29/16 08:45 AST 38 IU/L (14-46) 10/29/16 08:45 ALT 29 IU/L (9-52) 10/29/16 08:45 Alkaline Phosphatase 81 IU/L (38-126) 10/29/16 08:45 Total Protein 7.9 g/dL (6.3-8.2) 10/29/16 08:45 Albumin 4.2 g/dL (3.5-5.0) 10/29/16 08:45 Lipase 114.0 IU/L (23-300) 10/29/16 08:45 Beta HCG, Qual NEGATIVE 10/29/16 08:45 Urine Color [place] 10/29/16 09:55 Urine Appearance MODERATELY TURBID 10/29/16 09:55 Urine pH 5.0 (5.0-7.5) 10/29/16 09:55 Ur Specific [place] 1.011 (1.002-1.030) 10/29/16 09:55 Urine Protein 2+ (NEGATIVE) H 10/29/16 09:55 Urine Ketones 1+ (NEGATIVE) H 10/29/16 09:55 Urine Blood 3+ (NEGATIVE) H 10/29/16 09:55 Urine Nitrate POSITIVE (NEGATIVE) H 10/29/16 09:55 Urine Bilirubin NEGATIVE (NEGATIVE) 10/29/16 09:55 Urine Urobilinogen 2.0 EU (0.2-1.0) H 10/29/16 09:55 Ur Leukocyte Esterase 1+ (NEGATIVE) H 10/29/16 09:55 Urine RBC 50-182 /hpf (0-3) H 10/29/16 09:55 Urine WBC 50-182 /hpf (0-3) H 10/29/16 09:55 Ur Epithelial Cells NONE SEEN /lpf (NONE-1+) 10/29/16 09:55 Urine Bacteria 2+ /hpf (NONE SEEN) H 10/29/16 09:55 Urine Mucus 3+ /lpf (NONE-1+) H 10/29/16 09:55 Ur Culture Indicated? INDICATED (NI) H 10/29/16 09:55 Urine Glucose NEGATIVE (NEGATIVE) 10/29/16 09:55 Assessment & Plan Assessment: Acute flank pain (Acute) Intractable abdominal pain (Acute) UTI (urinary tract infection) (Acute)
[2016-10-29] MEDS: NS 1,000 ML IV SCH (14:29)
[2016-10-29] MEDS: POLYETHYLENE GLYCOL 3350 17 GM PKT PO SCH (16:09)
[2016-10-29] MEDS ORDERED: MYCOPHENOLATE MOFETIL 250 MG CAP PO SCH (21:00)
[2016-10-29] MEDS ORDERED: NON-FORMULARY NEW DRUG (Mycophenolate Mofetil [Cellcept] 1,500 MG) PO SCH (21:00)
[2016-10-29] MEDS: PHENAZOPYRIDINE HCL 200 MG TAB PO SCH (21:04)
[2016-10-29] MEDS: MYCOPHENOLATE MOFETIL 250 MG CAP PO SCH (21:05)
[2016-10-29] MEDS ORDERED: PHENAZOPYRIDINE HCL 200 MG TAB PO SCH (22:00)
[2016-10-30] MEDS ORDERED: MAG HYDROX/AL HYDROX/SIMETH 30 ML UDCUP PO PRN (00:13)
[2016-10-30] MEDS ORDERED: IOPAMIDOL (ISOVUE-300) 100 ML BTL IV ONE (00:33)
[2016-10-30] MEDS: HYDROmorphONE/DILAUDID 1 MG/ML SYR IVP PRN ×2 (00:40→02:31)
[2016-10-30] MEDS ORDERED: HYDROmorphONE/DILAUDID 1 MG/ML SYR IVP ONE (00:55)
[2016-10-30] MEDS: LACTULOSE 20 GM/30 ML UDCUP PO SCH ×4 (01:31→21:00)
[2016-10-30] MEDS: KETOROLAC 30 MG/1 ML SDV IVP PRN ×2 (04:32→21:00)
[2016-10-30] MEDS: NS 1,000 ML IV SCH (04:35)
[2016-10-30 05:29] LABS: % IMMATURE GRANULYOCYTES 0.3 % (0.0-1.1); ABSOLUTE IMMATURE GRANULOCYTES 0.02 10^3/uL (0.00-0.10); ADD DIFF? NO; ADD MORPH? NO; ADD SCAN? NO; ATYPICAL LYMPHOCYTE FLAG 0 (0-99); FRAGMENT RBC FLAG 0 (0-99); HEMATOCRIT 36.3 % (38.0-47.0); HEMOGLOBIN 11.7 g/dL (12.6-16.3); LEFT SHIFT FLG 0 (0-99); LIPEMIA HEMOLYSIS FLAG 80 (0-99); MEAN CELL HEMOGLOBIN 28.5 pg (27.9-34.1); MEAN CELL HEMOGLOBIN CONCENTR. 32.2 g/dL (32.4-36.7); MEAN CELL VOLUME 88.3 fL (81.5-99.8); MEAN PLATELET VOLUME 9.5 fL (8.7-11.7); PLATELET CLUMPS FLAG 0 (0-99); PLATELET COUNT 170 10^3/uL (150-400); RED BLOOD CELL COUNT 4.11 10^6/uL (4.18-5.33); RED CELL DISTRIBUTION WIDTH 13.7 % (11.5-15.2)
[2016-10-30 05:52] LABS: ANION GAP 7 mEq/L (8-16); CARBON DIOXIDE 24 mEq/l (22-31); CHLORIDE 105 mEq/L (97-110); CREATININE 0.8 mg/dL (0.6-1.0); GLOMERULAR FILTRATION RATE > 60; GLUCOSE 84 mg/dL (70-100); POTASSIUM 4.3 mEq/L (3.5-5.2); SODIUM 136 mEq/L (134-144)
[2016-10-30] MEDS ORDERED: NS 1,000 ML IV SCH (06:00)
[2016-10-30] MEDS: VESICARE 10 MG PO SCH (08:05)
[2016-10-30] MEDS: PHENAZOPYRIDINE HCL 200 MG TAB PO SCH ×3 (08:05→21:01)
[2016-10-30] MEDS: MYCOPHENOLATE MOFETIL 250 MG CAP PO SCH ×2 (08:05→21:03)
[2016-10-30] MEDS: POLYETHYLENE GLYCOL 3350 17 GM PKT PO SCH (08:05)
[2016-10-30] MEDS ORDERED: NON-FORMULARY NEW DRUG (Solifenacin Succinate [Vesicare] 10 MG) PO SCH (09:00)
[2016-10-30] MEDS ORDERED: VESICARE 10 MG PO SCH (09:00)
[2016-10-30] MEDS ORDERED: SOLIFENACIN SUCCINATE 5 MG TAB PO SCH (09:00)
[2016-10-30] MEDS ORDERED: MAGNESIUM CITRATE 300 ML BOTTLE PO ONE (10:09)
[2016-10-30] MEDS ORDERED: GOLYTELY 4000 ML BTL PO ONE (15:32)
--- NOTE | 2016-10-30 19:44 | HOSPPROG ---
Hospitalist Progress Note Assessment/Plan: # Acute sever constipation - several weeks f symptoms - test negative - oxygen saturations 96% on RA CT abd (personally reviewed and interpreted) severe constipation - perisstent per radiology - aggressive bowel regimen inclduing mag citrate, enema and golytely - ambulation - liquid diet as tolerated # Acute UTI - recent dx - Ucx - NGTD- creatinine normal - continue empiric abx # proph - ambulation # diet - liquids as tolerated #dispo - anticipate tomrrow if passes stool I have discussed with nursing will ambulated and increae bowel regimen aggressively as needed Subjective: abdoman feels full Objective: Vital Signs Temp Pulse Resp BP Pulse Ox 37.5 C 98 14 106/79 100 10/30/16 15:39 10/30/16 15:39 10/30/16 15:39 10/30/16 15:39 10/30/16 15:39 Laboratory Results 10/30/16 04:45 10/30/16 04:45 10/29/16 10/30/16 10/31/16 05:59 05:59 05:59 Intake Total 1716 750 Output Total 1475 900 Balance 241 -150 - Physical Exam Constitutional: appears nourished Eyes: anicteric sclera Ears, Nose, Mouth, Throat: moist mucous membranes Cardiovascular: regular rate and rhythym Respiratory: no respiratory distress Gastrointestinal: normoactive bowel sounds, no palpable masses Genitourinary: no bladder fullness Skin: warm Musculoskeletal: No asymmetric calves Neurologic: AAOx3 Psychiatric: interacting appropriately Lymph, Heme, Immunologic: no cervical LAD ICD10 Worksheet Patient Problems: Problems Problem Status Onset Acute flank pain Acute Intractable abdominal pain Acute UTI (urinary tract infection) Acute Constipation Acute Urinary tract infection Acute
[2016-10-31 06:04] LABS: HEMATOCRIT 37.3 % (38.0-47.0); MEAN CELL HEMOGLOBIN 28.1 pg (27.9-34.1); MEAN CELL HEMOGLOBIN CONCENTR. 32.2 g/dL (32.4-36.7); MEAN CELL VOLUME 87.4 fL (81.5-99.8); RED BLOOD CELL COUNT 4.27 10^6/uL (4.18-5.33); RED CELL DISTRIBUTION WIDTH 13.6 % (11.5-15.2)
[2016-10-31 06:15] LABS: ANION GAP 11 mEq/L (8-16); CARBON DIOXIDE 26 mEq/l (22-31); CHLORIDE 107 mEq/L (97-110); CREATININE 0.7 mg/dL (0.6-1.0); GLOMERULAR FILTRATION RATE > 60; GLUCOSE 83 mg/dL (70-100); POTASSIUM 3.9 mEq/L (3.5-5.2); SODIUM 144 mEq/L (134-144)
[2016-10-31 07:57] VITALS: RESP 14
[2016-10-31] MEDS: POLYETHYLENE GLYCOL 3350 17 GM PKT PO SCH (08:54)
[2016-10-31] MEDS: PHENAZOPYRIDINE HCL 200 MG TAB PO SCH (08:54)
[2016-10-31] MEDS: LACTULOSE 20 GM/30 ML UDCUP PO SCH (08:54)
[2016-10-31] MEDS: VESICARE 10 MG PO SCH (10:22)
[2016-10-31] MEDS: MYCOPHENOLATE MOFETIL 250 MG CAP PO SCH (10:22)
[2016-10-31] MEDS ORDERED: DOCUSATE SODIUM 100 MG CAP PO SCH (10:30)
[2016-10-31 13:02] VITALS: BP 98/67; PULSE 99; TEMP 98.1; O2SAT 90
--- NOTE | 2016-10-31 19:26 | GDS ---
CHIEF COMPLAINT: Abdominal pain. DISCHARGE DIAGNOSES: Include: 1. Severe constipation. 2. Acute urinary tract infection. HISTORY OF PRESENT ILLNESS: A 46-year-old female who presented to the emergency department multiple times with abdominal discomfort, found to have a urinary tract infection and severe constipation on imaging. For details of the patient's initial presentation, please see the history and physical dated 017. CONSULTATIVE SERVICES: None. IMAGING: CT abdomen and pelvis performed 10/30/2016 shows severe constipation and mild left uretera l dilatation without calculus consistent with possible pyelonephritis as well as bladder wall thicke kendrick. HOSPITAL COURSE: By issue: 1. Severe constipation. Patient does not regularly pass daily stools and had marked constipation v isualized on imaging, was initiated on aggressive bowel protocol without stooling. Was treated with magnesium citrate, and ultimately multiple soapsuds enemas and a GoLYTELY prep. The patient finall y has started passing stool consistently after the GoLYTELY prep. We are initiating a step-lind con stipation regimen for her to continue in the outpatient setting with a goal of daily stools. The john sepulveda is to follow up with her primary care provider for ongoing management of her constipation. 2. Acute urinary tract infection. Patient presented with abdominal discomfort, dysuria and had abn ormal urinalysis. Initiated on IV ceftriaxone, and urine culture did not grow a specific pathogen. She will complete a 7-day course of antibiotics with oral levofloxacin after disposition. TRANSFER MEDICATIONS: Please reference medication reconciliation printed on 10/31/2016. PENDING STUDIES: At the time of this dictation are none. FOLLOWUP APPOINTMENTS: Include with her primary care, Dr. Talavera in 1-2 weeks post disposition for a discharge followup of her bowel regimen. I spent greater than 30 minutes in the planning and coordination of this discharge. /[id number]/[id number]
== END 2016-10-31 16:30 | disposition home or self-care (01) ==
LOC: INTOOBSV 11:00 → F3E 12:18
PROVIDERS: ADMIT Family Medicine; ATTEND Hospitalist
DX: K59.00 Constipation, unspecified (principal); N39.0 Urinary tract infection, site not specified; J84.9 Interstitial pulmonary disease, unspecified
CPT/HCPCS: 74176; 76770; G0378; 96374; J0696; J1170; J1885; J3010; Q9967

== ENCOUNTER 2016-11-02 18:53 | Emergency (ER) | payer BC ==
[2016-11-02] MEDS ORDERED: GOLYTELY 4000 ML BTL PO ONE (20:45)
--- NOTE | 2016-11-02 20:45 | EDPHY ---
H & P Time Seen by Provider: 11/02/16 19:13 HPI/ROS: CHIEF COMPLAINT: Abdominal pain, constipation HISTORY OF PRESENT ILLNESS: 46-year-old female presents to the emergency department by private vehicle with her complaining of right-sided abdominal pain. The patient was initially seen by her primary care provider October 22, 2016 and was diagnosed with urinary tract infection. She was started on ciprofloxacin. She had a negative culture. She was seen in the emergency department 2 days later, October 24, 2016 and was changed to Levaquin. She continued to have ongoing abdominal pain. She was seen in the emergency department on October 28, 2016 which showed evidence of constipation on her abdominal x-ray. There is no evidence of obstruction. She was discharged home and encouraged to use magnesium citrate and glycerin suppositories. She returns the following day, October 29, 2016 with worsening abdominal pain. She had ultrasound of her kidneys which was normal. She was admitted to the hospital and had a repeat CT scan of the abdomen and pelvis which revealed severe constipation without evidence of free air. She had a normal appearing appendix. She had a thickened bladder wall noted on CT scan. This was also noted on the CT scan from October 22, 2016. In the hospital she used GoLYTELY and an enema. Since that time she has had right lower quadrant abdominal pain. She feels that this is getting much worse. She is passing gas. She was initially seen by primary care for provider for urinary tract infection and at that time had blood in her urine as well as dysuria. She has not noted blood in her urine nor has she had any dysuria. She is complaining however of some right flank pain which has been persistent. No fevers or chills. No vomiting. She saw her urologist today, Dr. Maurice Chapa and she was prescribed an antibiotic that she is supposed to take for 6 weeks. She also saw her primary care provider, Dr. Marlee Talavera who advised her to come to the emergency department for evaluation for possible appendicitis. REVIEW OF SYSTEMS: Constitutional: No fever, no chills. Eyes: No double or blurry vision. ENT: No sore throat. Respiratory: No cough, no shortness of breath. Cardiac: No chest pain. Gastrointestinal: Abdominal pain and constipation as above. No vomiting or diarrhea. Genitourinary: Dysuria and hematuria resolved. Musculoskeletal: No neck or back pain. Skin: No rashes. Neurological: No headache. Past Medical/Surgical History: Interstitial lung disease on CellCept Social History: and lives in [place] Smoking Status: Never smoked Physical Exam: General Appearance: Alert, no distress. Temperature 37.2 Eyes: Pupils equal and round. Extraocular motions are all intact. ENT: Mouth: Mucous membranes moist. Respiratory: No wheezing, rhonchi, or rales, lungs are clear to auscultation. Cardiovascular: Regular rate and rhythm. Gastrointestinal: Abdomen is soft. She has tenderness with palpation in the right lower quadrant. There is no rebound, guarding or masses noted. She has positive CVA tenderness on the right, none on the left. Neurological: Alert and oriented x 3, cranial nerves II through XII grossly intact Skin: Warm and dry, no rashes. Musculoskeletal: Nontender to palpate along the cervical, thoracic or lumbar spine. Neck is supple. Extremities: Full range of motion and no peripheral edema. Psychiatric: Patient is oriented X 3, there is no agitation. Constitutional: Initial Vital Signs Temperature (C) 37.2 C 11/02/16 18:54 Heart Rate 116 H 11/02/16 18:54 Respiratory Rate 18 11/02/16 18:54 Blood Pressure 100/68 11/02/16 18:54 O2 Sat (%) 91 L 11/02/16 18:54 O2 Delivery Mode Room Air Allergies/Adverse Reactions: No Known Allergies Allergy (Verified 11/02/16 18:54) Home Medications: Medication Instructions Recorded Phenazopyridine HCl [Pyridium] 200 mg PO TID #20 tab 10/24/16 Mycophenolate Mofetil [Cellcept] 1,500 mg PO BID 10/29/16 Solifenacin Succinate [Vesicare] 10 mg PO DAILY 10/29/16 Bisacodyl [Laxative] 5 mg PO DAILY PRN #30 tablet 10/31/16 Docusate Sodium [Colace 100 MG (*)] 100 mg PO BID #60 cap 10/31/16 Polyethylene Glycol 3350 [Miralax 17 gm PO DAILY #30 pkt 10/31/16 17 gm (*)] levOFLOXACIN [Levaquin] 500 mg PO DAILY #4 tablet 10/31/16 Medical Decision Making - Diagnostics Imaging: KUB x-ray reveals stool present in ascending colon. No evidence of bowel obstruction. This is greatly improved since October 28, 2016. This is reviewed by myself and the PAC system. ED Course/Re-evaluation: 46-year-old female presents to the emergency department with ongoing abdominal pain. The patient has been seen in the emergency department now 4 times in the last 8 days. She has had 2 CT scans which reveal thickened bladder wall as well severe constipation. Repeat KUB x-ray today reveals large amount of stool in the right, ascending colon. This is greatly improved from KUB x-ray from October 28, 2016. There is no evidence of obstruction. I spoke with Dr. Garrett Turner who was on-call for BM see Gastroenterology and he agreed with having the patient start GoLYTELY. He also recommended that the patient follow up in his office for likely colonoscopy especially if this becomes recurring problem. The patient has a scheduled appointment with Dr. Maurice Chapa. Urine culture has been ordered and is pending. The patient does not have a fever. She declined an IV. She declined laboratory studies. She declined repeat CT scan. I encouraged her return if she develops fever, worsening abdominal pain, or if she felt worse in any way. The case was discussed with Dr. Tatyana Rojas, supervising physician, who did not directly evaluate the patient but agrees with treatment and plan. Differential Diagnosis: Including but not limited to constipation, acute appendicitis, bowel obstruction - Data Points Laboratory Results: 11/02/16 21:00 Urine Color YELLOW Urine Appearance HAZY Urine pH 5.0 (5.0-7.5) Ur Specific [place] 1.009 (1.002-1.030) Urine Protein 2+ H (NEGATIVE) Urine Ketones 1+ H (NEGATIVE) Urine Blood 3+ H (NEGATIVE) Urine Nitrate NEGATIVE (NEGATIVE) Urine Bilirubin NEGATIVE (NEGATIVE) Urine Urobilinogen NEGATIVE EU EU (0.2-1.0) Ur Leukocyte Esterase 1+ H (NEGATIVE) Urine RBC 50-182 /hpf H /hpf (0-3) Urine WBC 50-182 /hpf H /hpf (0-3) Ur Epithelial Cells TRACE /lpf /lpf (NONE-1+) Urine Bacteria TRACE /hpf H /hpf (NONE SEEN) Urine Mucus TRACE /lpf /lpf (NONE-1+) Urine Glucose NEGATIVE (NEGATIVE) Medications Given: Discontinued Medications Polyethylene Glycol/Electrolytes (Golytely) 4,000 ml PO ONCE ONE Stop: 11/02/16 20:46 Last Admin: 11/02/16 21:20 Dose: 4,000 ml Departure - Departure Disposition: Home, Routine, Self-Care Clinical Impression: Constipation Qualifiers: Constipation type: unspecified constipation type Qualified Code(s): K59.00 - Constipation, unspecified Urinary tract infection Qualifiers: Urinary tract infection type: site unspecified Hematuria presence: without hematuria Qualified Code(s): N39.0 - Urinary tract infection, site not specified Condition: Good Instructions: Constipation (ED), Urinary Tract Infection in Women (ED), High Fiber Diet (ED) Additional Instructions: Continue GoLYTELY 8 oz every 10 minutes as discussed. Continue antibiotics as prescribed. Call to follow up with flat bed knitter as well as the urologist. Return if you develop fever, increasing pain, or if you feel worse in any way. Referrals: Marlee Talavera MD [Primary Care Provider] - As per Instructions Maurice Chapa MD [Medical Doctor] - As per Instructions Garrett Turner MD [Medical Doctor] - As per Instructions ([facility] flat bed knitter)
[2016-11-02 21:21] VITALS: RESP 16
[2016-11-02 21:23] LABS: COLOR YELLOW; LEUKOCYTE ESTERASE,URINE 1+ (NEGATIVE); NITRITE,URINE NEGATIVE (NEGATIVE)
[2016-11-02 21:32] LABS: BACTERIA TRACE /hpf (NONE SEEN); MUCUS TRACE /lpf (NONE-1+); RBC,URINE 50-182 /hpf (0-3); WBC,URINE 50-182 /hpf (0-3)
[2016-11-02 22:33] VITALS: BP 106/66; PULSE 91; TEMP 98.4; O2SAT 93
== END 2016-11-02 22:32 | disposition home or self-care (01) ==
DX: K59.00 Constipation, unspecified (principal); N39.0 Urinary tract infection, site not specified; B96.89 Other specified bacterial agents as the cause of diseases classified elsewhere

== ENCOUNTER → 2016-11-08 | Outpatient (CLI) | payer BC | LOC: FIMAGING 08:27 | PROVIDERS: ATTEND Internal Medicine | DX: R10.30 Lower abdominal pain, unspecified (principal); K59.09 Other constipation ==

== ENCOUNTER → 2017-01-04 | Outpatient (CLI) | payer BC | LOC: BMCIMAGING 07:26 | DX: Z12.31 Encounter for screening mammogram for malignant neoplasm of breast (principal) | CPT/HCPCS: G0202 ==

== ENCOUNTER → 2017-04-18 | Outpatient (CLI) | payer BC | LOC: FIMAGING 07:50 | PROVIDERS: ATTEND Internal Medicine Rheumatology | DX: J84.9 Interstitial pulmonary disease, unspecified (principal) ==

== ENCOUNTER → 2018-01-06 | Outpatient (CLI) | payer OTHER | LOC: BMCIMAGING 07:36 | PROVIDERS: ATTEND Internal Medicine | DX: Z12.31 Encounter for screening mammogram for malignant neoplasm of breast (principal) ==

== ENCOUNTER → 2019-01-23 | Outpatient (CLI) | payer OTHER | LOC: BMCIMAGING 07:32 | PROVIDERS: ATTEND Internal Medicine | DX: Z12.31 Encounter for screening mammogram for malignant neoplasm of breast (principal) ==